=== PATIENT | male | born 1935 | race Caucasian/White ===

== ENCOUNTER 2017-02-03 16:02 | Emergency (ER) | payer OTHER ==
[~2017-02-03] VITALS: Ht 182.9 cm; Wt 145.0 kg
[~2017-02-03 16:02] MED LIST: ADVAIR 250-501 EACH IH; ADVAIR 250/501 DISK IH; ANTIVERT25 MG PO; ASPIRIN E.C.81 M1 PO; AUGMENTIN875 MG PO; AVALIDE 150/1 TABLET PO; BYETTA PEN250 MCG/ML SC; BYETTA5 MCG/0.02 SQ; CADUET 10/201 TABLET PO; CADUET PO; CLOBETASOL PROP60 GM TP; COMBIVENT RESPIM4 GM IH; DIABETA,MICRON2.5 MG PO; GLYNASE3 MG PO; Glucophage PO; JANUVIA PO; JANUVIA100 MG PO; LANTUS 3 M100 UNITS1 SC; LOSARTAN-HCTZ1 EAC2 PO; METFORMIN HCL850 MG PO; METOPROLOL SUCC25 MG PO; METOPROLOL SUCC50 MG PO; PREDNISONE; PROVENTIL,2.5 MG/3 M IH; SPIRIVA1 INHALATI IH; Sterapred DS 10 mg U PO; TRADJENTA5 MG PO; VENTOLIN HFA18 GM IH; VENTOLIN17 GM IH; ZITHROMAX Z-PA250 MG PO; ZITHROMAX500 MG PO; Zocor PO; [UNRECOGNIZED DRUG - REMARK] BOTH EYES
[2017-02-03 18:00] LABS: BASOPHIL COUNT 0.1 K/uL (0-0.1); EOSINOPHIL (%) 7.1 % (0-5); HEMATOCRIT 43.5 % (38.0-50.0); IMMATURE GRANULOCYTE (%) 0.4 % (0.0-0.7); IMMATURE GRANULOCYTE COUNT 0.1 K/uL; INSTRUMENT ABS NEUTROPHIL CT 11.8 K/uL; LYMPHOCYTE COUNT 0.8 K/uL (1.0-2.8); MCH 29.1 PG (29.0-34.0); MCHC 32.2 G/DL (30.0-36.0); MCV 90.4 FL (86-99); MEAN PLAT.VOLUME 8.9 uM^3 (9.0-12.4); MONOCYTE (%) 2.5 % (3-12); MONOCYTE COUNT 0.4 K/uL (0-0.8); NEUTROPHIL (%) 83.9 % (45-76); NEUTROPHIL COUNT 11.8 K/uL (1.8-6.4); PLATELET COUNT 347 K/uL (156-360); RBC DIS.WIDTH-CV 14.4 % (11.8-14.6); RBC DIS.WIDTH-SD 47.9 % (39-53); RED BLOOD COUNT 4.81 M/uL (4.00-5.50)
[2017-02-03 18:09] LABS: CHLORIDE 107 mEq/L (99-109); POTASSIUM 5.2 mEq/L (3.7-5.4); SODIUM 140 mEq/L (136-147)
[2017-02-03 18:11] LABS: GLUCOSE 166 mg/dL (70-99)
[2017-02-03 18:12] LABS: ANION GAP 13 MEQ/L (2-14)
[2017-02-03 18:15] LABS: GFR ESTIMATE (CALCULATED) 52 mL/min/
[2017-02-03 18:16] LABS: UREA NITROGEN (BUN) 21 mg/dL (9-23)
[2017-02-03 18:22] LABS: TROP-I INTERPRETATION NEGATIVE; TROPONIN-I < 0.01 ng/mL (0.0-0.30)
[2017-02-03] MEDS ORDERED: PREDNISONE50 MG PO (19:16)
[2017-02-03] MEDS ORDERED: LEVAQUIN750 MG PO (19:16)
[2017-02-03 19:26] VITALS: BP 133/68
== END 2017-02-03 19:28 | disposition home or self-care (01) ==
LOC: EME 16:02
PROVIDERS: Emergency Medicine
DX: J20.9 Acute bronchitis, unspecified (principal); E11.65 Type 2 diabetes mellitus with hyperglycemia; R06.00 Dyspnea, unspecified; I10 Essential (primary) hypertension; Z79.84 Long term (current) use of oral hypoglycemic drugs
CPT/HCPCS: 71020; 80048; 83880; 84484; 85025; 93005; 99281; 99284

== ENCOUNTER 2018-03-06 08:34 | Emergency (ER) | payer OTHER ==
[~2018-03-06] VITALS: Ht 182.9 cm; Wt 143.0 kg
[~2018-03-06 08:34] MED LIST changes: +LEVAQUIN750 MG PO; +PREDNISONE50 MG PO
[2018-03-06] MEDS ORDERED: ULTRAM50 MG PO (09:39)
[2018-03-06 10:06] VITALS: BP 149/74
== END 2018-03-06 10:09 | disposition home or self-care (01) ==
LOC: EME 08:34
DX: M25.462 Effusion, left knee (principal); M85.80 Other specified disorders of bone density and structure, unspecified site
CPT/HCPCS: 73564; 99281; 99284